=== PATIENT | female | born 1955 | race Caucasian/White ===

== ENCOUNTER → 2016-10-30 | Outpatient (CLI) | payer BC ==
--- NOTE | 2016-10-30 11:49 | REPMRS ---
Patient History The patient states she had a clinical breast exam in 07/2016. Patient is postmenopausal. Family history of breast cancer in maternal aunt at age 50 or over. Took hormonal contraceptives for 7 years. Digital Woman Screen Mammo: October 30, 2016 - Exam #: [id number] Bilateral CC and MLO view(s) were taken. Technologist: Nena Sahni, Technologist Prior study comparison: October 19, 2015, digital woman screen mammo performed at [facility]. August 11, 2014, digital woman screen mammo performed at [facility]. FINDINGS: The breast tissue is heterogeneously dense. This may lower the sensitivity of mammography. There has been no change in the appearance of the mammogram from the prior studies. There is a moderate amount of residual fibroglandular tissue which is fairly symmetric. There is no interval development of dominant mass, architectural distortion, or clustered microcalcification typical of malignancy. Scattered lymph nodes are seen in the left axilla.Large coarse benign appearing calcification is present on the left. No significant changes when compared with prior studies. ASSESSMENT: BI-RADS/ACR category 2 mammogram. Benign finding(s). Recommendation Routine screening mammogram in 1 year (for women over age 40). This mammogram was interpreted with the aid of an FDA-approved computer-aided dectection system. A. Negative x-ray reports should not delay biopsy if a dominant or clinically suspicious mass is present. B. Four to eight percent of cancers are not identified by mammography. C. Adenosis and dense breast may obscure an underlying neoplasm. Electronically Signed By: Maxi Cabrera MD 10/30/16 0030
--- NOTE | 2016-10-31 10:40 | DEXA ---
AP SPINE L1 - L4 1.014 -1.4 -0.2 LT FEMUR TOTAL 0.911 -0.8 0.1 RT FEMUR TOTAL 0.910 -0.8 0.1 TOTAL BODY TOTAL OTHER DUAL FEMUR FRAX* ASSESSMENT Risk factors: Not performed. 10 year probability of fracture Major osteoporotic fracture % Hip fracture % COMMENTS: There is low bone density of the left hip based on femoral neck T score -1.1 left. There is low bone density of the right hip based on femoral neck T score -1.3 right. The decreased density of the spine does not represent a significant change since 08/04/2013. The increased density of the left hip does represent a significant change since 08/04/2013. The increased density of the right hip does represent a significant change. The density of the spine has increased 11.6% since the initial exam on 2011. The spine density has increased 1.2% since the most recent exam on 08/04/2013. The density of the left hip has increased 6.4% since the initial exam on 2011. The density of the left hip has increased 2.6% since the most recent exam on 08/2013. The density of the right hip has increased 9.2% since the initial exam on 2011. The density of the right hip has increased 4.2% since the most recent exam on . FOLLOW-UP: Recommendation for the next bone density exam: 2 years. KARL
== END ==
LOC: M WHC 07:56
PROVIDERS: ATTEND Nurse Practitioner
DX: Z12.31 Encounter for screening mammogram for malignant neoplasm of breast (principal); M81.0 Age-related osteoporosis without current pathological fracture

== ENCOUNTER → 2016-11-14 | Outpatient (CLI) | payer BC ==
--- NOTE | 2016-11-14 09:40 | REP ---
LEFT FOOT SERIES: Four views of the left foot performed. There is a fracture of the proximal shaft of the 5th proximal phalanx. There is minimal displacement. No other acute fracture or dislocation is seen. There is mild inferior calcaneal spurring. IMPRESSION: Slightly displaced fracture 5th proximal phalanx. Signed by Zachary Gonzales MD 11/14/2016 05:08 P
== END ==
LOC: M ADAMS 08:32
PROVIDERS: ATTEND Physician Assistant Medical
DX: S90.122A Contusion of left lesser toe(s) without damage to nail, initial encounter (principal); X58.XXXA Exposure to other specified factors, initial encounter; Y92.89 Other specified places as the place of occurrence of the external cause; Y99.9 Unspecified external cause status

== ENCOUNTER → 2017-11-10 | Outpatient (CLI) | payer BC | LOC: M WUC 08:29 | DX: S92.324A Nondisplaced fracture of second metatarsal bone, right foot, initial encounter for closed fracture (principal); S92.334A Nondisplaced fracture of third metatarsal bone, right foot, initial encounter for closed fracture; M77.31 Calcaneal spur, right foot | CPT/HCPCS: 73630 ==

== ENCOUNTER → 2018-03-03 | Outpatient (CLI) | payer BC | LOC: M WHC 07:52 | DX: Z13.820 Encounter for screening for osteoporosis (principal); M80.80XS Other osteoporosis with current pathological fracture, unspecified site, sequela | CPT/HCPCS: 77080 ==

== ENCOUNTER → 2019-09-23 | Outpatient (REF) | payer BC | LOC: M LAB REF 17:52 | PROVIDERS: ATTEND Physician Assistant | DX: L57.0 Actinic keratosis (principal) ==

== ENCOUNTER → 2020-11-16 | Outpatient (REF) | payer BC | LOC: M LAB REF 19:14 | PROVIDERS: ATTEND Physician Assistant | DX: D22.39 Melanocytic nevi of other parts of face (principal) ==

== ENCOUNTER → 2024-12-14 | Outpatient (CLI) | payer BC | LOC: M WUC 11:29 | PROVIDERS: ATTEND Student in an Organized Health Care Education/Training Program | DX: M25.532 Pain in left wrist (principal); M79.89 Other specified soft tissue disorders ==